=== PATIENT | male | born 1960 | race Caucasian/White ===

== ENCOUNTER 2017-07-24 09:53 | Emergency (ER) | payer OTHER ==
[~2017-07-24] VITALS: Ht 180.3 cm; Wt 63.5 kg
[2017-07-24] MEDS ORDERED: MUCINEX600 MG PO (10:07)
[2017-07-24 10:24] LABS: ABSOLUTE NEUTROPHILS 9.3 thou/uL (1.4-8.2); BASOPHILS 0.5 % (0.0-2.0); EOSINOPHILS 0.6 % (0.0-3.0); HEMATOCRIT 40.2 % (42.0-52.0); HEMOGLOBIN 13.4 gm/dL (14.0-18.0); LYMPHOCYTES 11.3 % (24.0-44.0); MCH 30.3 pg (26.0-34.0); MCHC 33.4 g/dL (28.0-37.0); MCV 90.6 fL (80.0-100.0); PLATELET COUNT 239 thou/uL (150-400); POLYS 79.6 % (36.0-66.0); RBC 4.44 mil/uL (4.50-6.00); RDW 14.9 % (10.5-14.5); WBC 11.6 thou/uL (4.0-11.0)
[2017-07-24 10:34] LABS: ANION GAP 8 mmol/L (7-16); BUN 14 mg/dL (7-18); CALCIUM 9.1 mg/dL (8.5-10.1); CHLORIDE 103 mmol/L (98-107); CO2 25 mmol/L (21-32); GLUCOSE 120 mg/dL (74-106); POTASSIUM 4.1 mmol/L (3.5-5.1); SODIUM 136 mmol/L (136-145)
[2017-07-24 10:43] LABS: ALBUMIN 3.4 g/dL (3.4-5.0); SGOT 21 U/L (15-37); SGPT 15 U/L (30-65); TOTAL BILIRUBIN 0.6 mg/dL (<0.1-1.0); TOTAL PROTEIN 7.7 g/dL (6.4-8.2); TROPONIN-I < 0.04 ng/mL (<0.06)
[2017-07-24] MEDS ORDERED: VENTOLIN HFA 1818 GM INH (12:33)
[2017-07-24] MEDS ORDERED: PREDNISONE 20 M20 MG PO (12:33)
[2017-07-24] MEDS ORDERED: DOXYCYCLINE 10100 MG PO (12:33)
[2017-07-24 13:08] VITALS: BP 105/65
== END 2017-07-24 13:56 | disposition home or self-care (01) ==
LOC: ER 09:53
PROVIDERS: Physician Assistant
DX: J44.1 Chronic obstructive pulmonary disease with (acute) exacerbation (principal); J18.9 Pneumonia, unspecified organism; B34.9 Viral infection, unspecified; Z91.14 Patient's other noncompliance with medication regimen; F17.210 Nicotine dependence, cigarettes, uncomplicated

== ENCOUNTER 2018-09-15 14:51 | Emergency (ER) | payer OTHER ==
[~2018-09-15] VITALS: Ht 175.3 cm; Wt 72.6 kg
[~2018-09-15 14:51] MED LIST: DOXYCYCLINE 10100 MG PO; MUCINEX600 MG PO; PREDNISONE 20 M20 MG PO; VENTOLIN HFA 1818 GM INH
[2018-09-15 16:50] LABS: EOSINOPHILS 3.9 % (0.0-3.0); HEMATOCRIT 40.9 % (42.0-52.0); HEMOGLOBIN 13.6 gm/dL (14.0-18.0); LYMPHOCYTES 38.3 % (24.0-44.0); MCH 30.4 pg (26.0-34.0); MCHC 33.2 g/dL (28.0-37.0); MCV 91.5 fL (80.0-100.0); PLATELET COUNT 222 thou/uL (150-400); POLYS 45.8 % (36.0-66.0); RBC 4.47 mil/uL (4.50-6.00); RDW 14.2 % (10.5-14.5); WBC 4.3 thou/uL (4.0-11.0)
[2018-09-15 16:54] LABS: ANION GAP 6 mmol/L (7-16); BUN 20 mg/dL (7-18); CHLORIDE 103 mmol/L (98-107); CO2 29 mmol/L (21-32); CREATININE 1.1 mg/dL (0.7-1.3); GLUCOSE 96 mg/dL (74-106); POTASSIUM 4.6 mmol/L (3.5-5.1); SODIUM 138 mmol/L (136-145)
[2018-09-15 17:03] LABS: ALBUMIN 3.5 g/dL (3.4-5.0); SGOT 26 U/L (15-37); SGPT 23 U/L (30-65); TOTAL BILIRUBIN 0.2 mg/dL (<0.1-1.0); TOTAL PROTEIN 7.6 g/dL (6.4-8.2); TROPONIN-I <0.06 ng/mL (<0.06)
[2018-09-15 18:03] LABS: URINE BILIRUBIN NEGATIVE (Negative); URINE BLOOD NEGATIVE (Negative); URINE CLARITY CLEAR; URINE COLOR YELLOW; URINE GLUCOSE-RANDOM* NEGATIVE (Negative); URINE KETONES NEGATIVE (Negative); URINE LEUKOCYTES-REFLEX NEGATIVE (Negative); URINE NITRITE-REFLEX NEGATIVE (Negative); URINE PROTEIN (DIPSTICK) NEGATIVE (Negative); URINE UROBILINOGEN 0.2 E.U./dl (0.2-1.0)
[2018-09-15 19:10] VITALS: BP 127/85
--- NOTE | 2018-09-16 07:31 | EKG ---
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 : 1960 Requested By: Yara Diaz Order Number: [id number] MD: Fred White Measurements Intervals [place] Rate: 68 P: 80 OK: 151 QRS: 70 QRSD: 93 T: 60 QT: 385 QTc: 410 Interpretive Statements Sinus rhythm Compared to ECG 03/14/2006 13:11:40 No significant changes Electronically Signed On 09-16-2018 7:31:34 CDT by Fred White [email or web address] ��������������������������������������������� <ELECTRONICALLY SIGNED> ���������������������������������������� By: Fred White MD ��������������������������������������������� 09/16/18 0731 1637 1637 Fred White MD /RASHMI
== END 2018-09-15 19:15 | disposition home or self-care (01) ==
LOC: ER 14:51
PROVIDERS: Emergency Medicine; Physician Assistant
DX: R53.83 Other fatigue (principal); R53.1 Weakness; R05 Cough; J44.9 Chronic obstructive pulmonary disease, unspecified; F17.210 Nicotine dependence, cigarettes, uncomplicated